=== PATIENT | female | born 1935 | race Caucasian/White ===

== ENCOUNTER 2017-04-27 14:56 | Observation (INO) | payer MEDICARE, BC ==
--- NOTE | 2017-04-27 16:32 | CT ---
CT OF THE BRAIN WITHOUT CONTRAST: Date: 04/27/17 COMPARISON: 04/30/15. HISTORY: Head injury after fall. TECHNIQUE: Multiple contiguous axial images were obtained in a CT of the brain without contrast. FINDINGS: The brain is normal in morphology and attenuation without focal lesions or confluent areas of infarct ion. There is no evidence of hydrocephalus, intracranial hemorrhage, or extra-axial fluid collection. The calvarium is unremarkable. There is a dressing placed superficially on the patient's left posteri or scalp. The visualized paranasal sinuses and mastoid air cells are well aerated. IMPRESSION: No evidence of acute intracranial abnormality. POS: [facility]
[2017-04-27] MEDS ORDERED: Lidocaine 1% w/Epinephrine 1:100K 20 ML VIAL ONE (17:15)
[2017-04-27 17:51] LABS: #Basophils 0.1 thou/uL (0.0-0.2); #Eosinphils 0.1 thou/uL (0.0-0.7); #Lymphocytes 1.4 thou/uL (1.20-3.40); #Monocytes 0.9 thou/uL (0.11-0.59); #Neutrophils 5.9 thou/uL (1.40-6.50); %Basophils 0.7 % (0.0-1.0); %Eosinophils 1.7 % (0.0-10.0); %Lymphocytes 16.5 % (21.0-51.0); %Monocytes 10.7 % (0.0-10.0); %Neutrophils 70.5 % (42.0-75.0); Hemoglobin 10.1 g/dL (12.0-16.0); Mean Corpuscular HGB CONC 34.7 g/dL (32.0-36.0); Mean Corpuscular Hemoglobin 35.9 pg (27.0-31.0); Platelet Count 229 thou/uL (130-400); RBC Distribution Width 12.4 % (11.5-14.5); Red Blood Cell (RBC) Count 2.82 mill/uL (4.20-5.40); White Blood Cell (WBC) Count 8.3 thou/uL (4.8-10.8)
[2017-04-27 17:58] LABS: INR-International Normal Ratio 1.9; PTT 31.3 SEC (22.9-36.1); Prothrombin Time 22.7 SEC (12.0-14.7)
[2017-04-27 18:14] LABS: ALT (SGPT) 16 U/L (8-55); AST (SGOT) 17 U/L (5-34); Albumin 3.8 g/dL (3.4-4.8); Alkaline Phosphatase 44 U/L (40-150); Anion Gap 12 mmol/L (10-20); BUN (Urea Nitrogen) 21 mg/dL (9.8-20.1); Bilirubin, Total 0.5 mg/dL (0.2-1.2); Calc. Creatinine Clearance 0 mL/min (70-130); Calcium 9.1 mg/dL (7.8-10.44); Carbon Dioxide 24 mmol/L (23-31); Chloride 95 mmol/L (98-107); Estimated GFR-MDRD 52; Globulin 2.4 g/dL (2.4-3.5); Glucose 146 mg/dL (83-110); Magnesium 1.9 mg/dL (1.6-2.6); Potassium 4.3 mmol/L (3.5-5.1); Protein, Total 6.2 g/dL (6.0-8.3); Sodium 127 mmol/L (136-145)
[2017-04-27 18:18] LABS: CKMB 1.5 ng/mL (0-6.6); Troponin I Less than 0.010 ng/mL (< 0.028)
--- NOTE | 2017-04-27 20:06 | RAD ---
CHEST ONE VIEW: History: Laceration to back of head. FINDINGS: Heart size is within normal limits. There are atherosclerotic changes of the aorta. The lungs are oh ar of any infiltrative process. The bones are demineralized. No rib fractures are appreciated. Mitral annulus calcifications are seen. IMPRESSION: No active intrathoracic disease. POS: [facility]
--- NOTE | 2017-04-27 20:07 | RAD ---
AP PELVIS: History: Fall with pelvic pain. Comparison: 11-29-13 FINDINGS: There is some slight deformity to the left superior and inferior pubic rami. I believe that these are related to older injuries. They were not seen on the previous study, but I still favor that these ar e old. SI joints are symmetric. There are some arthritic changes of both hips. IMPRESSION: Suggestion of some old injury to the left superior and inferior pubic rami region. No definite acute fracture. POS: [facility]
--- NOTE | 2017-04-27 20:09 | RAD ---
LUMBAR SPINE SERIES THREE VIEWS: History: Fall with back pain. FINDINGS: The bones appear demineralized. Vertebral body height is well maintained. Disc narrowing is seen at L 5-S1. There are degenerative facet changes present. No acute injury demonstrated. Staghorn calculus o f the left kidney is noted. IMPRESSION: No evidence of acute injury. POS: [facility]
--- NOTE | 2017-04-27 20:10 | RAD ---
LEFT ELBOW TWO VIEWS: History: Fall with elbow pain. Comparison: 05-02-15 FINDINGS: Post-operative changes of the elbow are now present. There is artificial joint extending across the u esthetics instructor and distal humerus related to an old fracture. There are no signs of acute injury. IMPRESSION: No acute fracture. POS: [facility]
--- NOTE | 2017-04-27 20:11 | RAD ---
RIGHT HAND THREE VIEWS: History: Fall with hand pain. FINDINGS: There are arthritic changes of the hand. Changes are most pronounced at the PIP joint of the little f jacky. The bones are demineralized. There are no signs of fracture or dislocation. IMPRESSION: No evidence of fracture. POS: [facility]
--- NOTE | 2017-04-27 20:11 | RAD ---
LEFT ANKLE TWO VIEWS: History: Fall with ankle pain. FINDINGS: Calcaneal spurs are present. There are no signs of fracture, dislocation, or joint effusion. IMPRESSION: No evidence of fracture. POS: [facility]
[2017-04-27] MEDS ORDERED: Adacel (T-DAP) 0.5 ML VIAL ONE (20:45)
[2017-04-27 21:51] LABS: #Eosinphils 0.1 thou/uL (0.0-0.7); #Lymphocytes 1.4 thou/uL (1.20-3.40); #Monocytes 0.7 thou/uL (0.11-0.59); #Neutrophils 10.5 thou/uL (1.40-6.50); %Basophils 0.3 % (0.0-1.0); %Eosinophils 0.6 % (0.0-10.0); %Lymphocytes 10.7 % (21.0-51.0); %Monocytes 5.6 % (0.0-10.0); %Neutrophils 82.8 % (42.0-75.0); Hemoglobin 8.2 g/dL (12.0-16.0); Mean Corpuscular HGB CONC 33.7 g/dL (32.0-36.0); Mean Corpuscular Hemoglobin 35.2 pg (27.0-31.0); Platelet Count 210 thou/uL (130-400); RBC Distribution Width 12.6 % (11.5-14.5); Red Blood Cell (RBC) Count 2.34 mill/uL (4.20-5.40); White Blood Cell (WBC) Count 12.7 thou/uL (4.8-10.8)
[2017-04-27 23:23] VITALS: BMI 27.4
[2017-04-27] MEDS ORDERED: Sodium Chloride 0.9% 1,000 ML IV SCH (23:33)
[2017-04-27] MEDS ORDERED: Dextrose 50% Abboject 50 ML SYRINGE SLOW IVP PRN (23:33)
[2017-04-27] MEDS ORDERED: Ondansetron ODT 4 MG TAB PO PRN (23:33)
[2017-04-27] MEDS ORDERED: Dextrose 5% in Water 1,000 ML IV PRN (23:33)
[2017-04-27] MEDS ORDERED: traMADol HCl 50 MG TAB PO PRN ×2 (23:33)
[2017-04-27] MEDS ORDERED: HumaLOG 300 UNITS/3 ML VIAL SC PRN (23:33)
[2017-04-27] MEDS ORDERED: Promethazine HCl 25 MG/ML VIAL IM PRN (23:33)
[2017-04-27] MEDS ORDERED: Ondansetron HCl/PF 4 MG/2 ML Vial IVP PRN (23:33)
[2017-04-28] MEDS ORDERED: Non-Formulary Item 1 EACH (Ezetimibe/Simvastatin [Vytorin] 1 TABLET) PO SCH (00:15)
[2017-04-28] MEDS: Acetaminophen 500 MG TAB PO SCH ×3 (00:38→11:38)
--- NOTE | 2017-04-28 00:45 | HP ---
DATE OF ADMISSION: 04/27/2017 ATTENDING PHYSICIAN: Naseem Perdomo M.D. CHIEF COMPLAINT: Evaluation status post fall. HISTORY OF PRESENT ILLNESS: An 81-year-old female who reports head injury, status post fall. The patient reported she tripped over something. Family has been reporting recent gait instability, the patient fell yesterday and injured her left elbow. The patient had no LOC. She is currently on Xarelto. She denies any chest pain, dizziness, shortness of breath prior to the fall. PAST MEDICAL HISTORY: Includes atrial fibrillation on Xarelto, hypertension, diabetes type 2, hyperlipidemia, colon cancer, liver cancer 30 years ago. PAST SURGICAL HISTORY: Includes colon resection and hysterectomy. PAST PSYCHIATRIC HISTORY: No psychiatric history. SOCIAL HISTORY: The patient lives alone. She denies any alcohol or drug use or smoking history. REVIEW OF SYSTEMS: All 10 systems reviewed otherwise stated in the HPI were negative. PHYSICAL EXAMINATION: VITAL SIGNS: Blood pressure 110/39, heart rate of 57, respiratory rate of 16, 0 /10 pain, 95% on room air. HEENT: She does have a hematoma to the posterior scalp that has been repaired where there is a laceration, normocephalic. Eyes: A 3 mm bilaterally, equal, round, and reactive. No JVD, no masses. Trachea is midline. NECK: No cervical spine tenderness. CHEST: She is clear bilaterally via auscultation. No chest wall tenderness. CARDIOVASCULAR: S1, S2 regular rate and rhythm. ABDOMEN: Soft, nontender, nondistended. BACK: Unremarkable. EXTREMITIES: Upper extremity showed ecchymosis and tenderness to the left elbow , right arm is void of injury. Lower extremity: Left lower leg has multiple areas of old and new bruises from the upper thigh to the knee. She has been ambulating falls. NEUROLOGIC: GCS is 15. SKIN: Warm and dry. LABORATORY DATA: WBC of 8.3, hemoglobin 10.1, hematocrit of 29.1, platelet count 229. Coag: PT 22.7, INR 1.9, PTT 31.3. Chemistries: Sodium 127, potassium 4.3, chloride 95, bicarb of 24, BUN 21, creatinine 1.03. Glucose 146. IMAGING: Brain CT, no intracranial hemorrhage. Chest x-ray, no acute abnormality, elbow x-ray, no acute fracture. Pelvic x-ray showed possible old injury to the left superior and inferior pubic rami fracture. Ankle x-ray, no evidence of fracture. Hand x-ray, no evidence of fracture. Lumbar spine x-ray , no evidence of acute injury. ASSESSMENT AND PLAN: An 81-year-old female, status post fall from standing, with head lac on blood thinners. 1. Status post fall and concussion. 2. Head laceration. 3. History of atrial fibrillation on thinners. Plan will be to place the patient on observation to stroke floor, q.2 hours neuro checks.Repeat CT Head in the AM. Resume home medications with the exception of Xarelto. Regular diet. Optimize pain management. PT, OT, possible rehabilitation discharge planning. The patient has been discussed with Dr. Perdomo and agrees with the above plan. DI
[2017-04-28 05:55] LABS: #Eosinphils 0.1 thou/uL (0.0-0.7); #Lymphocytes 1.5 thou/uL (1.20-3.40); #Monocytes 0.8 thou/uL (0.11-0.59); #Neutrophils 4.5 thou/uL (1.40-6.50); %Basophils 0.1 % (0.0-1.0); %Eosinophils 0.9 % (0.0-10.0); %Lymphocytes 22.2 % (21.0-51.0); %Monocytes 11.9 % (0.0-10.0); %Neutrophils 64.8 % (42.0-75.0); Hemoglobin 7.4 g/dL (12.0-16.0); Mean Corpuscular HGB CONC 34.3 g/dL (32.0-36.0); Mean Corpuscular Hemoglobin 35.9 pg (27.0-31.0); Mean Platelet Volume 7.1 fL (7.4-10.4); PTT 27.1 SEC (22.9-36.1); Platelet Count 175 thou/uL (130-400); RBC Distribution Width 12.8 % (11.5-14.5); Red Blood Cell (RBC) Count 2.05 mill/uL (4.20-5.40); White Blood Cell (WBC) Count 6.9 thou/uL (4.8-10.8)
[2017-04-28 05:57] LABS: INR-International Normal Ratio 1.4; Prothrombin Time 17.6 SEC (12.0-14.7)
[2017-04-28] MEDS ORDERED: Levothyroxine Sodium 88 MCG TAB PO SCH (06:00)
[2017-04-28 06:03] LABS: Anion Gap 10 mmol/L (10-20); BUN (Urea Nitrogen) 26 mg/dL (9.8-20.1); Calc. Creatinine Clearance 59 mL/min (70-130); Calcium 8.1 mg/dL (7.8-10.44); Carbon Dioxide 24 mmol/L (23-31); Chloride 101 mmol/L (98-107); Estimated GFR-MDRD 50; Glucose 136 mg/dL (83-110); Potassium 4.3 mmol/L (3.5-5.1); Sodium 131 mmol/L (136-145)
--- NOTE | 2017-04-28 07:37 | CT ---
PRELIMINARY REPORT/[facility]/EMERGENCY AFTER HOURS PROCEDURE: EXAM: CT Head Without Intravenous Contrast CLINICAL HISTORY: 81 years old, female; Injury or trauma; Fall; Initial encounter; Abrasion; Head, generalized; Patient HX: F/u fall TECHNIQUE: Axial computed tomography images of the head/brain without intravenous contrast. COMPARISON: CT Brain WO Con 2017-04-27 16:24 FINDINGS: Brain: Age appropriate atrophy and small vessel ischemic change. No mass effect, midline shift or ext ra axial fluid collections. Riley-white matter differentiation is normal. No hemorrhage. Ventricles: Unremarkable. No ventriculomegaly. Bones/joints: Unremarkable. No acute fracture. Soft tissues: There is left parietal scalp swelling with surgical akhil in place Vasculature: Carotid and vertebral artery atherosclerotic calcification. Sinuses: Mucosal thickening in the sphenoid sinuses. Mastoid air cells: Unremarkable as visualized. No mastoid effusion. Orbits: The patient has had bilateral lens replacement surgery. IMPRESSION: No acute intracranial injury. Thank you for allowing us to participate in the care of your patient. Dictated and Authenticated by: Naseem Santiago MD 04/28/2017 5:52 AM Central Time ([place] & [place]) FINAL REPORT CT BRAIN WITHOUT CONTRAST: I agree with the preliminary report given by Dr. Naseem Santiago of [facility]. POS: [facility]
[2017-04-28] MEDS ORDERED: metFORMIN 500 MG TAB PO SCH (08:00)
[2017-04-28] MEDS ORDERED: Famotidine 20 MG TAB PO SCH (09:00)
[2017-04-28] MEDS ORDERED: Metoprolol Tartrate 50 MG TAB PO SCH (09:00)
[2017-04-28] MEDS ORDERED: Alogliptin 25 MG TAB PO SCH (09:00)
[2017-04-28] MEDS ORDERED: Flecainide 50 MG TAB PO SCH (09:00)
[2017-04-28] MEDS ORDERED: Escitalopram Oxalate 20 mg Tablet PO SCH (09:00)
[2017-04-28 11:41] VITALS: TEMP 98.1
[2017-04-28 13:45] VITALS: BP 123/59
--- NOTE | 2017-04-28 23:49 | DIS ---
DATE OF ADMISSION: 04/27/2017. DATE OF DISCHARGE: 04/28/2017. CHIEF COMPLAINT: Evaluation status post fall. HISTORY OF PRESENT ILLNESS: The patient is an 81-year-old female with a history of atrial fibrillation, treated with Xarelto; hypertension; type 2 diabetes; hyperlipidemia; and a remote history of colon and liver cancer. She presented to the ED status post fall with concern for acute intracranial bleed given her Xarelto use. She has a history of recent gait instability and falls including 3-4 falls in the last year. In this most recent episode, she fell and injured her left elbow, but did not report any loss of consciousness and denied any chest pain, dizziness, shortness of breath. ER COURSE: She had a brain CT, which was negative for acute intracranial abnormality. She also had a chest x-ray, elbow x-ray, pelvis x-ray, ankle x-ray , hand x-ray, and lumbar spine x-ray; all of which were negative for acute injury. She also had a posterior head laceration, which was closed in the ER. She was admitted by the Trauma Service and sent to the stroke floor for observation. No further procedures were performed. DISCHARGE: the patient was discharged home with home health in stable condition. DISCHARGE MEDICATIONS: New medications: Acetaminophen 1000 mg p.o. every 6 hours, tramadol 50 mg p.o. every 6 hours as needed. CONTINUED MEDICATIONS: Metformin 500 mg b.i.d.; vitamin E 400 units daily; Tambocor 50 mg p.o. b.i.d.; Januvia 100 mg p.o. daily; metoprolol 50 mg p.o. daily; aspirin 81 mg p.o. daily; levothyroxine 88 mcg p.o. daily; Lexapro 20 mg p.o. daily; vitamin D3, 1000 units p.o. daily; niacin 1 tab p.o. at bedtime; vitamin B12 one tab p.o. daily; losartan/HCTZ 50/12.5 mg tabs, 1 tablet p.o. daily; Vytorin 1 tablet p.o. as directed; amoxicillin 1 tablet p.o. daily. ACTIVITY ORDERS: No restrictions. DIET: No restrictions. THERAPIES: Home health 3 times a week for 4 weeks. FOLLOWUP ORDERS: The patient was instructed to follow up with Dr. Terry in 7 days. DI
[2017-04-29] MEDS ORDERED: Simvastatin 40 MG TAB PO SCH (21:00)
[2017-04-29] MEDS ORDERED: Ezetimibe 10 MG TAB PO SCH (21:00)
== END 2017-04-28 13:30 | disposition home health service (06) ==
LOC: ERS 14:56 → 2SE 18:12
PROVIDERS: ADMIT Specialist; ATTEND Specialist
DX: S00.91XA Abrasion of unspecified part of head, initial encounter (principal); S59.901A Unspecified injury of right elbow, initial encounter; I48.91 Unspecified atrial fibrillation; I10 Essential (primary) hypertension; E11.9 Type 2 diabetes mellitus without complications; E78.5 Hyperlipidemia, unspecified; Z91.041 Radiographic dye allergy status; Z79.01 Long term (current) use of anticoagulants; Z85.038 Personal history of other malignant neoplasm of large intestine; Z85.05 Personal history of malignant neoplasm of liver; Z91.81 History of falling
CPT/HCPCS: 12001; 70450 ×2; 71045; 72100; 72170; 73070; 73130; 73600; 80048; 80053; 82553; 82962 ×2; 83735; 84484; 85025 ×3; 85610 ×2; 85730 ×2; 90471; 90715; 96361; 96374; 97116; 97139; 97530; 99285; G0378; G8978; G8979; G8987; G8988; 36415; 36416; G0390; J2001; J2270

== ENCOUNTER 2021-08-30 16:56 | Day surgery (SDC) | payer MEDICARE ==
[2021-08-30] MEDS ORDERED: diphenhydrAMINE 25 MG CAP PO SCH (18:00)
[2021-08-30] MEDS ORDERED: Acetaminophen 500 MG TAB PO SCH (18:00)
[2021-08-31 00:02] LABS: Hemoglobin 6.8 g/dL (12.0-16.0); Mean Corpuscular HGB CONC 33.7 g/dL (32.0-36.0); Mean Corpuscular Hemoglobin 36.9 pg (27.0-31.0); Mean Platelet Volume 7.9 fL (7.4-10.4); Platelet Count 211 thou/uL (130-400); RBC Distribution Width 18.9 % (11.5-14.5); Red Blood Cell (RBC) Count 1.85 mill/uL (4.20-5.40); White Blood Cell (WBC) Count 5.4 thou/uL (4.8-10.8)
[2021-08-31 00:06] VITALS: BP 107/61; TEMP 97.8
[2021-08-31 00:26] LABS: MDiff Complete? YES
[2021-08-31 00:27] LABS: Anisocytosis SLIGHT = 6-15 cells (100X) (0-5/hpf); Band 7 % (5-11); Eosinophils 5 % (0-10); Lymphocytes 49 % (21-51); Macrocytosis SLIGHT = 6-15 cells (100X) (0-5/hpf); Metamyelocyte 1 % (0-0); Monocytes 10 % (0-10); Neutrophil 28 % (42-75)
== END 2021-08-31 04:52 | disposition home or self-care (01) ==
LOC: ONC/OP 16:56 → MSONC 17:49 → ONC/OP 08-31 04:52
PROVIDERS: ATTEND Internal Medicine Hematology & Oncology
PROC: 30233N1 Transfusion of Nonautologous Red Blood Cells into Peripheral Vein, Percutaneous Approach (ICD-10-PCS; principal; 2021-08-30)
DX: D64.9 Anemia, unspecified (principal); D69.6 Thrombocytopenia, unspecified; Z91.041 Radiographic dye allergy status
CPT/HCPCS: 36415; 36430; 80053; 82248; 82668; 82728; 83010; 83540; 83550; 83615; 84100; 84165; 84550; 85025; 85046; 86850; 86900; 86901; P9016

== ENCOUNTER 2021-08-31 12:45 | Emergency (ER) | payer MEDICARE ==
[2021-08-31 14:09] LABS: Hemoglobin 8.2 g/dL (12.0-16.0); Mean Corpuscular Hemoglobin 36.9 pg (27.0-31.0); Mean Platelet Volume 8.2 fL (7.4-10.4); Platelet Count 263 thou/uL (130-400); RBC Distribution Width 19.4 % (11.5-14.5); Red Blood Cell (RBC) Count 2.22 mill/uL (4.20-5.40)
[2021-08-31 14:15] LABS: INR-International Normal Ratio 1.1; PTT 24.9 sec (22.9-36.1); Prothrombin Time 14.3 sec (12.0-14.7)
[2021-08-31 14:22] LABS: ALT (SGPT) 17 U/L (8-55); AST (SGOT) 20 U/L (5-34); Albumin 4.1 g/dL (3.4-4.8); Alkaline Phosphatase 48 U/L (40-110); Anion Gap 12 mmol/L (10-20); BUN (Urea Nitrogen) 20 mg/dL (9.8-20.1); Bilirubin, Total 0.8 mg/dL (0.2-1.2); Calc. Creatinine Clearance 0 mL/min (70-130); Calcium 9.5 mg/dL (7.8-10.44); Carbon Dioxide 28 mmol/L (23-31); Chloride 103 mmol/L (98-107); Glucose 110 mg/dL (83-110); Potassium 4.2 mmol/L (3.5-5.1); Protein, Total 7.1 g/dL (5.8-8.1); Sodium 139 mmol/L (136-145)
[2021-08-31 14:26] LABS: Anisocytosis SLIGHT = 6-15 cells (100X) (0-5/hpf); Band 2 % (5-11); Eosinophils 1 % (0-10); Lymphocytes 46 % (21-51); MDiff Complete? YES; Macrocytosis MODERATE=16-30 cells (100X) (0-5/hpf); Monocytes 15 % (0-10); Neutrophil 28 % (42-75); Ovalocytes SLIGHT = 2-5 cells (100X) (0-1/hpf); Platelet Morphology Comment Appears Adequate; Polychromasia SLIGHT = 2-3 cells (100X) (0-2/hpf); Reactive Lymphocytes 8 % (0-10); Stomatocytes SLIGHT = 2-5 cells (100X) (0-1/hpf)
== END 2021-08-31 14:50 | disposition home or self-care (01) ==
LOC: ERS 12:45
DX: D64.9 Anemia, unspecified (principal); E78.5 Hyperlipidemia, unspecified; E11.9 Type 2 diabetes mellitus without complications; I48.91 Unspecified atrial fibrillation; Z79.82 Long term (current) use of aspirin; Z79.84 Long term (current) use of oral hypoglycemic drugs; Z79.01 Long term (current) use of anticoagulants
CPT/HCPCS: 80053; 85025; 85610; 85730; 86850; 86900; 86901; 99284

== ENCOUNTER 2021-10-17 08:29 | Observation (INO) | payer OTHER, MEDICARE ==
[~2021-10-17 08:29] MED LIST: ISOVUE-370 76%-LOCM 1 ML ONE
[2021-10-17 09:01] LABS: #Eosinphils 0.2 thou/uL (0.0-0.7); #Lymphocytes 1.6 thou/uL (1.20-3.40); #Monocytes 0.6 thou/uL (0.11-0.59); #Neutrophils 2.3 thou/uL (1.40-6.50); %Basophils 0.5 % (0.0-1.0); %Eosinophils 3.7 % (0.0-10.0); %Lymphocytes 34.5 % (21.0-51.0); %Monocytes 12.9 % (0.0-10.0); %Neutrophils 48.4 % (42.0-75.0); Hemoglobin 10.5 g/dL (12.0-16.0); Mean Corpuscular HGB CONC 33.9 g/dL (32.0-36.0); Mean Corpuscular Hemoglobin 41.4 pg (27.0-31.0); Mean Platelet Volume 8.1 fL (7.4-10.4); Platelet Count 210 thou/uL (130-400); RBC Distribution Width 16.2 % (11.5-14.5); Red Blood Cell (RBC) Count 2.54 mill/uL (4.20-5.40); White Blood Cell (WBC) Count 4.7 thou/uL (4.8-10.8)
[2021-10-17 09:26] LABS: ALT (SGPT) 26 U/L (8-55); AST (SGOT) 26 U/L (5-34); Albumin 4.6 g/dL (3.4-4.8); Alkaline Phosphatase 52 U/L (40-110); Anion Gap 15 mmol/L (10-20); BUN (Urea Nitrogen) 24 mg/dL (9.8-20.1); Calc. Creatinine Clearance 0 mL/min (70-130); Calcium 10.1 mg/dL (7.8-10.44); Carbon Dioxide 28 mmol/L (23-31); Chloride 100 mmol/L (98-107); Estimated GFR 47; Globulin 3.3 g/dL (2.4-3.5); Glucose 221 mg/dL (83-110); Potassium 4.7 mmol/L (3.5-5.1); Protein, Total 7.9 g/dL (5.8-8.1); Sodium 138 mmol/L (136-145)
[2021-10-17] MEDS ORDERED: Ondansetron PF 4 MG/2 ML Vial IVP PRN (18:14)
[2021-10-17] MEDS ORDERED: Promethazine HCl 25 MG/ML VIAL IM PRN (18:14)
[2021-10-17] MEDS ORDERED: EZETIMIBE PO SCH (18:30)
[2021-10-17] MEDS ORDERED: SIMVASTATIN PO SCH (18:30)
[2021-10-17 20:10] VITALS: BMI 25.7
[2021-10-17] MEDS: Sodium Chloride 0.9% 1,000 ML IV SCH ×2 (20:23→23:58)
[2021-10-17] MEDS: Acetaminophen 500 MG TAB PO SCH ×2 (20:24→23:57)
[2021-10-17] MEDS: Metoprolol Tartrate 50 MG TAB PO SCH (20:24)
[2021-10-17] MEDS ORDERED: HumaLOG 300 UNITS/3 ML VIAL SC PRN (20:26)
[2021-10-17] MEDS ORDERED: Dextrose 5% in Water 1,000 ML IV PRN (20:26)
[2021-10-17] MEDS ORDERED: Dextrose 50% Abboject 50 ML SYRINGE SLOW IVP PRN (20:26)
[2021-10-17] MEDS ORDERED: Famotidine/PF 20 mg/2ml Vial SLOW IVP SCH (21:00)
[2021-10-18] MEDS ORDERED: diphenhydrAMINE 50 MG/ML VIAL IVP SCH (02:00)
[2021-10-18] MEDS ORDERED: Famotidine/PF 20 mg/2ml Vial SLOW IVP SCH (02:00)
[2021-10-18] MEDS: methylPREDNISolone Sod Succ 40 MG VIAL IVP SCH ×3 (02:01→10:12)
[2021-10-18] MEDS: Acetaminophen 500 MG TAB PO SCH ×2 (04:57→12:41)
[2021-10-18 05:28] LABS: #Eosinphils 0.1 thou/uL (0.0-0.7); #Monocytes 0.4 thou/uL (0.11-0.59); #Neutrophils 3.6 thou/uL (1.40-6.50); %Basophils 0.4 % (0.0-1.0); %Eosinophils 1.3 % (0.0-10.0); %Lymphocytes 19.7 % (21.0-51.0); %Monocytes 7.2 % (0.0-10.0); %Neutrophils 71.5 % (42.0-75.0); Mean Corpuscular HGB CONC 33.2 g/dL (32.0-36.0); Mean Corpuscular Hemoglobin 41.1 pg (27.0-31.0); Platelet Count 166 thou/uL (130-400); RBC Distribution Width 15.9 % (11.5-14.5); Red Blood Cell (RBC) Count 2.18 mill/uL (4.20-5.40)
[2021-10-18] MEDS ORDERED: Levothyroxine Sodium 88 MCG TAB PO SCH (06:00)
[2021-10-18 06:02] LABS: Anion Gap 15 mmol/L (10-20); BUN (Urea Nitrogen) 17 mg/dL (9.8-20.1); Calc. Creatinine Clearance 66 mL/min (70-130); Calcium 9.1 mg/dL (7.8-10.44); Carbon Dioxide 21 mmol/L (23-31); Chloride 104 mmol/L (98-107); Estimated GFR 69; Glucose 156 mg/dL (83-110); Sodium 136 mmol/L (136-145)
[2021-10-18] MEDS ORDERED: Escitalopram Oxalate 20 mg Tablet PO SCH (09:00)
[2021-10-18] MEDS ORDERED: Amlodipine 10 MG TAB PO SCH (09:00)
[2021-10-18] MEDS: Metoprolol Tartrate 50 MG TAB PO SCH (09:06)
[2021-10-18 12:05] VITALS: BP 146/60; TEMP 98.2
[2021-10-18] MEDS ORDERED: Ferrous Sulfate 325 MG TAB PO SCH (17:00)
[2021-10-18] MEDS ORDERED: Simvastatin 10 MG TAB PO SCH (21:00)
[2021-10-18] MEDS ORDERED: Ezetimibe 10 MG TAB PO SCH (21:00)
[2021-10-19] MEDS ORDERED: Ascorbic Acid 500 mg Chewable Tablet PO SCH (09:00)
== END 2021-10-18 13:33 | disposition home or self-care (01) ==
LOC: ERS 08:29 → NEURO 18:14
PROVIDERS: ADMIT Specialist; ATTEND Specialist
DX: S06.6X0A Traumatic subarachnoid hemorrhage without loss of consciousness, initial encounter (principal); G89.11 Acute pain due to trauma; I10 Essential (primary) hypertension; E11.9 Type 2 diabetes mellitus without complications; E78.5 Hyperlipidemia, unspecified; I48.91 Unspecified atrial fibrillation; D64.9 Anemia, unspecified; M16.11 Unilateral primary osteoarthritis, right hip; M17.11 Unilateral primary osteoarthritis, right knee; Z85.038 Personal history of other malignant neoplasm of large intestine; Z79.2 Long term (current) use of antibiotics; Z79.4 Long term (current) use of insulin; Z79.810 Long term (current) use of selective estrogen receptor modulators (SERMs); Z79.82 Long term (current) use of aspirin; Z79.890 Hormone replacement therapy; Z79.899 Other long term (current) drug therapy; Z91.041 Radiographic dye allergy status; Z95.0 Presence of cardiac pacemaker; Z20.822 Contact with and (suspected) exposure to COVID-19; W01.0XXA Fall on same level from slipping, tripping and stumbling without subsequent striking against object, initial encounter; Y92.238 Other place in hospital as the place of occurrence of the external cause
CPT/HCPCS: 36415; 36416; 70450; 70496; 70498; 80048; 80053; 85025; 93005; 96374; 96375; 96376; G0378; J1200; J2920; J7050; Q9966; S0028; U0003; U0005

== ENCOUNTER 2021-11-07 12:44 | Outpatient (CLI) | payer MEDICARE | END 2021-11-07 12:45 | disposition home or self-care (01) | LOC: CT 12:44 | PROVIDERS: ATTEND Internal Medicine | DX: M25.551 Pain in right hip (principal); S32.591D Other specified fracture of right pubis, subsequent encounter for fracture with routine healing ==

== ENCOUNTER 2022-05-23 09:33 | Inpatient (IN) | payer MEDICARE ==
[~2022-05-23 09:33] MED LIST changes: -ISOVUE-370 76%-LOCM 1 ML ONE; +Iopamidol 370 76% 100 ML VIAL ONE
[2022-05-23] MEDS ORDERED: methylPREDNISolone Sod Succ 40 MG VIAL ONE (09:45)
[2022-05-23] MEDS ORDERED: diphenhydrAMINE 50 MG/ML VIAL ONE ×2 (09:45→10:58)
[2022-05-23] MEDS ORDERED: Famotidine/PF 20 mg/2ml Vial ONE (09:45)
[2022-05-23 09:52] LABS: Hemoglobin 11.3 g/dL (12.0-16.0); Mean Corpuscular HGB CONC 33.8 g/dL (32.0-36.0); Mean Corpuscular Hemoglobin 40.2 pg (27.0-31.0); Mean Platelet Volume 8.5 fL (7.4-10.4); Platelet Count 177 10x3/uL (130-400); Red Blood Cell (RBC) Count 2.82 mill/uL (4.20-5.40); White Blood Cell (WBC) Count 5.2 10x3/uL (4.8-10.8)
[2022-05-23 10:04] LABS: INR-International Normal Ratio 1.1; PTT 24.2 sec (22.9-36.1)
[2022-05-23 10:05] LABS: Band 11 % (5-11); Eosinophils 3 % (0-10); Hypochromia SLIGHT = 6-15 cells (100X) (0-5/hpf); Lymphocytes 10 % (21-51); MDiff Complete? YES; Macrocytosis SLIGHT = 6-15 cells (100X) (0-5/hpf); Monocytes 13 % (0-10); Neutrophil 63 % (42-75); Platelet Morphology Comment Appears Adequate
[2022-05-23 10:09] LABS: ALT (SGPT) 27 U/L (8-55); AST (SGOT) 20 U/L (5-34); Albumin 4.2 g/dL (3.4-4.8); Alkaline Phosphatase 41 U/L (40-110); Anion Gap 15 mmol/L (10-20); BUN (Urea Nitrogen) 23 mg/dL (9.8-20.1); Bilirubin, Total 0.8 mg/dL (0.2-1.2); CK (CPK) 27 U/L (29-168); Calc. Creatinine Clearance 0 mL/min (70-130); Calcium 9.6 mg/dL (7.8-10.44); Carbon Dioxide 25 mmol/L (23-31); Chloride 103 mmol/L (98-107); Estimated GFR 59; Globulin 2.6 g/dL (2.4-3.5); Glucose 154 mg/dL (83-110); Potassium 4.5 mmol/L (3.5-5.1); Protein, Total 6.8 g/dL (5.8-8.1); Sodium 138 mmol/L (136-145)
[2022-05-23] MEDS ORDERED: fentaNYL PF 100 MCG/2 ML SYRINGE ONE (10:29)
[2022-05-23] MEDS ORDERED: Rocuronium Bromide 10 MG/ML (10ML VIAL) ONE (10:58)
[2022-05-23] MEDS ORDERED: Dexamethasone 20 MG/5 ML VIAL ONE (10:58)
[2022-05-23] MEDS ORDERED: Lidocaine 1% PF 5 ML VIAL ONE (10:58)
[2022-05-23] MEDS ORDERED: PROPOFOL 200 MG/20 ML VIAL ONE (10:58)
[2022-05-23] MEDS ORDERED: Esmolol 100 MG/10 ML VIAL ONE (10:58)
[2022-05-23] MEDS ORDERED: hydrALAZINE 20 MG/ML VIAL SLOW IVP PRN (10:59)
[2022-05-23] MEDS ORDERED: Acetaminophen 325 MG TAB PO PRN (10:59)
[2022-05-23] MEDS ORDERED: Labetalol HCl 100 MG/20 ML VIAL SLOW IVP PRN (10:59)
[2022-05-23] MEDS ORDERED: niCARdipine 25 MG in Sodium Chloride 0.9% 250 ML 250 ML IVPB PRN (10:59)
[2022-05-23] MEDS ORDERED: Heparin 10,000 UNITS/ 10 ML VIAL ONE (11:33)
[2022-05-23] MEDS ORDERED: Iopamidol-370 76% 500 ML 1 ML ONE (12:28)
[2022-05-23] MEDS: Sodium Chloride 0.9% 1,000 ML IV SCH (13:00)
[2022-05-23 13:03] LABS: Base Excess (BEa) -2.7 mEq/L (-2.0 to +3.0); CO2 Tension 43.8 mmHg (35.0-45.0); Calcium, Ionized (arterial) 1.11 mmol/L (1.12-1.30); Carboxyhemoglobin (COHb) 0.4 gm% (0.0-3.0); Hemoglobin (Hb) 11.6 g/dL (12.0-16.0); O2 Tension (PaO2), arterial 82.2 mmHg (> 60.0); Potassium - ABG Lab 4.42 mmol/L (3.70-5.30); pH, Arterial 7.34 (7.35-7.45)
[2022-05-23 13:04] LABS: Puncture Site LRA
[2022-05-23 13:32] LABS: SARS-CoV-2 NAA Rapid Test Not Detected (NotDetected)
[2022-05-23] MEDS ORDERED: HumaLOG 300 UNITS/3 ML VIAL SC PRN (14:03)
[2022-05-23] MEDS ORDERED: Dextrose 5% in Water 1,000 ML IV PRN (14:03)
[2022-05-23] MEDS ORDERED: Dextrose 50% Abboject 50 ML SYRINGE SLOW IVP PRN (14:03)
[2022-05-23] MEDS: HumaLOG 300 UNITS/3 ML VIAL SC PRN (18:06)
[2022-05-23] MEDS: Atorvastatin Calcium 40 MG TAB PO SCH (22:48)
[2022-05-23] MEDS: Metoprolol Tartrate 25 MG TAB PO SCH (22:48)
[2022-05-24] MEDS: Sodium Chloride 0.9% 1,000 ML IV SCH ×3 (02:00→22:09)
[2022-05-24 04:48] LABS: Cardiac Risk 2.2 (Less than 4.5); Cholesterol 110 mg/dl (< 200 Desired); HDL Cholesterol 51 mg/dL (>60 Neg Risk); LDL Cholesterol, Calculated 45 mg/dL; Magnesium 1.8 mg/dL (1.6-2.6); Triglycerides 71 mg/dL (Less than 150)
[2022-05-24] MEDS: Levothyroxine Sodium 88 MCG TAB PO SCH (05:27)
[2022-05-24] MEDS: HumaLOG 300 UNITS/3 ML VIAL SC PRN ×3 (06:04→22:28)
[2022-05-24] MEDS ORDERED: Aspirin 300 MG Suppository PR SCH (09:00)
[2022-05-24] MEDS ORDERED: Aspirin 325 mg Enteric Coated Tablet PO SCH (09:00)
[2022-05-24] MEDS ORDERED: ALBUMIN 5% 25 GM/250 ML BAG IVPB SCH (09:45)
[2022-05-24] MEDS ORDERED: Albumin 5% 250 ML ONE ×2 (09:46)
[2022-05-24] MEDS ORDERED: NOREPINEPHRINE 8 MG/250 ML-D5W 250 ML ONE (09:46)
[2022-05-24] MEDS ORDERED: Sodium Chloride 3% 250 ML IVPB SCH (10:45)
[2022-05-24] MEDS ORDERED: NOREPINEPHRINE 8 MG/250 ML-D5W 250 ML IVPB SCH (12:45)
[2022-05-24] MEDS: Ezetimibe 10 MG TAB PO SCH (12:55)
[2022-05-24] MEDS: Alogliptin 25 MG TAB PO SCH (12:55)
[2022-05-24] MEDS: Metoprolol Tartrate 25 MG TAB PO SCH ×2 (12:55→20:41)
[2022-05-24] MEDS ORDERED: Sodium Chloride 3% 500 ML IVPB SCH (13:45)
[2022-05-24] MEDS ORDERED: SODIUM CHLORIDE IV SCH (13:45)
[2022-05-24] MEDS ORDERED: ADMIXTURE FEE IV SCH (13:45)
[2022-05-24 14:08] LABS: Sodium 146 mmol/L (136-145)
[2022-05-24] MEDS: Pantoprazole 40 MG VIAL IVP SCH (14:12)
[2022-05-24 14:53] LABS: Actual Bicarbonate (HCO3a) 22.3 mEq/L (22-28); Base Excess (BEa) -1.5 mEq/L (-2.0 to +3.0); CO2 Tension 33.7 mmHg (35.0-45.0); Calcium, Ionized (arterial) 1.12 mmol/L (1.12-1.30); Carboxyhemoglobin (COHb) 0.1 gm% (0.0-3.0); Hemoglobin (Hb) 9.4 g/dL (12.0-16.0); O2 Tension (PaO2), arterial 151.3 mmHg (> 60.0); Potassium - ABG Lab 3.56 mmol/L (3.70-5.30); pH, Arterial 7.44 (7.35-7.45)
[2022-05-24 14:54] LABS: ALV-art Gradient 91.775 mmHg (0-20); Puncture Site Arterial Line
[2022-05-24 15:44] VITALS: BMI 34.6
[2022-05-24] MEDS: levETIRAcetam 500 MG/5 ML VIAL SLOW IVP SCH (16:12)
[2022-05-24 17:53] LABS: Sodium 154 mmol/L (136-145)
[2022-05-24] MEDS: Atorvastatin Calcium 40 MG TAB PO SCH (20:36)
[2022-05-24 21:27] LABS: Sodium 159 mmol/L (136-145)
[2022-05-25] MEDS: Sodium Chloride 0.9% 1,000 ML IV SCH (00:04)
[2022-05-25] MEDS: levETIRAcetam 500 MG/5 ML VIAL SLOW IVP SCH ×2 (02:40→15:24)
[2022-05-25 04:26] LABS: #Lymphocytes 1.1 thou/uL (1.20-3.40); #Monocytes 1.7 thou/uL (0.11-0.59); #Neutrophils 11.2 thou/uL (1.40-6.50); %Basophils 0.2 % (0.0-1.0); %Eosinophils 0.1 % (0.0-10.0); %Lymphocytes 8.1 % (21.0-51.0); %Monocytes 11.9 % (0.0-10.0); %Neutrophils 79.7 % (42.0-75.0); Hemoglobin 9.5 g/dL (12.0-16.0); Mean Corpuscular HGB CONC 32.1 g/dL (32.0-36.0); Mean Corpuscular Hemoglobin 38.7 pg (27.0-31.0); Mean Platelet Volume 8.8 fL (7.4-10.4); Platelet Count 152 10x3/uL (130-400); RBC Distribution Width 14.4 % (11.5-14.5); Red Blood Cell (RBC) Count 2.45 mill/uL (4.20-5.40)
[2022-05-25] MEDS: HumaLOG 300 UNITS/3 ML VIAL SC PRN ×4 (05:19→21:45)
[2022-05-25] MEDS: Levothyroxine Sodium 88 MCG TAB PO SCH (06:00)
[2022-05-25 06:24] LABS: Anion Gap 11 mmol/L (10-20); BUN (Urea Nitrogen) 17 mg/dL (9.8-20.1); Calc. Creatinine Clearance 65 mL/min (70-130); Calcium 9.9 mg/dL (7.8-10.44); Carbon Dioxide 24 mmol/L (23-31); Chloride 133 mmol/L (98-107); Estimated GFR 63; Glucose 211 mg/dL (83-110); Potassium 2.7 mmol/L (3.5-5.1); Sodium 165 mmol/L (136-145)
[2022-05-25] MEDS: Alogliptin 25 MG TAB PO SCH (10:16)
[2022-05-25] MEDS: Pantoprazole 40 MG VIAL IVP SCH (10:16)
[2022-05-25] MEDS: Ezetimibe 10 MG TAB PO SCH (10:16)
[2022-05-25] MEDS: Metoprolol Tartrate 25 MG TAB PO SCH ×2 (11:24→21:06)
[2022-05-25] MEDS ORDERED: Potassium Chloride 40 MEQ in Premix Bag 1 BAG IVPB SCH (11:30)
[2022-05-25 13:16] LABS: Sodium 168 mmol/L (136-145)
[2022-05-25] MEDS ORDERED: Metoclopramide HCl 10 MG/2 ML VIAL IVP PRN (13:26)
[2022-05-25 19:09] LABS: Sodium 168 mmol/L (136-145)
[2022-05-25] MEDS: Atorvastatin Calcium 40 MG TAB PO SCH (21:06)
[2022-05-26] MEDS: levETIRAcetam 500 MG/5 ML VIAL SLOW IVP SCH (02:15)
[2022-05-26] MEDS: HumaLOG 300 UNITS/3 ML VIAL SC PRN ×2 (04:17→09:18)
[2022-05-26 04:47] LABS: Hemoglobin 10.1 g/dL (12.0-16.0); Mean Corpuscular HGB CONC 33.3 g/dL (32.0-36.0); Mean Corpuscular Hemoglobin 40.7 pg (27.0-31.0); Mean Platelet Volume 9.2 fL (7.4-10.4); Platelet Count 156 10x3/uL (130-400); RBC Distribution Width 14.4 % (11.5-14.5); Red Blood Cell (RBC) Count 2.48 mill/uL (4.20-5.40); White Blood Cell (WBC) Count 17.8 10x3/uL (4.8-10.8)
[2022-05-26 05:10] LABS: Anion Gap 13 mmol/L (10-20); BUN (Urea Nitrogen) 19 mg/dL (9.8-20.1); Calc. Creatinine Clearance 48 mL/min (70-130); Calcium 10.5 mg/dL (7.8-10.44); Carbon Dioxide 24 mmol/L (23-31); Chloride 139 mmol/L (98-107); Estimated GFR 45; Glucose 372 mg/dL (83-110); Potassium 3.4 mmol/L (3.5-5.1); Sodium 173 mmol/L (136-145)
[2022-05-26 05:27] LABS: Band 6 % (5-11); Lymphocytes 6 % (21-51); MDiff Complete? YES; Monocytes 1 % (0-10); Myelocyte 1 % (0-0); Neutrophil 86 % (42-75); Ovalocytes SLIGHT = 2-5 cells (100X) (0-1/hpf); Platelet Morphology Comment Appears Adequate; Polychromasia SLIGHT = 2-3 cells (100X) (0-2/hpf)
[2022-05-26] MEDS: Levothyroxine Sodium 88 MCG TAB PO SCH (05:44)
[2022-05-26] MEDS: Metoprolol Tartrate 25 MG TAB PO SCH (08:05)
[2022-05-26] MEDS: Ezetimibe 10 MG TAB PO SCH (08:05)
[2022-05-26] MEDS: Alogliptin 25 MG TAB PO SCH (08:05)
[2022-05-26] MEDS: Pantoprazole 40 MG VIAL IVP SCH (08:05)
[2022-05-26 10:51] VITALS: BP 122/52
[2022-05-26 10:55] VITALS: TEMP 98.6
== END 2022-05-26 12:30 | disposition expired | DRG 23 ==
LOC: ERS 09:33 → CCU 10:48 → CCL 10:49 → CCU 12:17
PROVIDERS: ADMIT Neurological Surgery; ATTEND Internal Medicine
PROC: 03CG3Z7 Extirpation of Matter from Intracranial Artery using Stent Retriever, Percutaneous Approach (ICD-10-PCS; principal; 2022-05-23)
PROC: B31R1ZZ Fluoroscopy of Intracranial Arteries using Low Osmolar Contrast (ICD-10-PCS; 2022-05-23)
PROC: 04HY32Z Insertion of Monitoring Device into Lower Artery, Percutaneous Approach (ICD-10-PCS; 2022-05-24)
PROC: 06HY33Z Insertion of Infusion Device into Lower Vein, Percutaneous Approach (ICD-10-PCS; 2022-05-24)
PROC: 5A1945Z Respiratory Ventilation, 24-96 Consecutive Hours (ICD-10-PCS; 2022-05-24)
PROC: 0BH17EZ Insertion of Endotracheal Airway into Trachea, Via Natural or Artificial Opening (ICD-10-PCS; 2022-05-24)
PROC: 3E033XZ Introduction of Vasopressor into Peripheral Vein, Percutaneous Approach (ICD-10-PCS; 2022-05-24)
PROC: 30233J1 Transfusion of Nonautologous Serum Albumin into Peripheral Vein, Percutaneous Approach (ICD-10-PCS; 2022-05-24)
PROC: 4A10X4Z Monitoring of Central Nervous Electrical Activity, External Approach (ICD-10-PCS; 2022-05-26)
DX: I63.311 Cerebral infarction due to thrombosis of right middle cerebral artery (principal); I61.9 Nontraumatic intracerebral hemorrhage, unspecified; J96.01 Acute respiratory failure with hypoxia; G81.94 Hemiplegia, unspecified affecting left nondominant side; N17.9 Acute kidney failure, unspecified; E87.20 Acidosis, unspecified; E87.0 Hyperosmolality and hypernatremia; Z51.5 Encounter for palliative care; I10 Essential (primary) hypertension; E78.5 Hyperlipidemia, unspecified; R47.81 Slurred speech; I48.0 Paroxysmal atrial fibrillation; E11.69 Type 2 diabetes mellitus with other specified complication; D53.9 Nutritional anemia, unspecified; I34.0 Nonrheumatic mitral (valve) insufficiency; Z20.822 Contact with and (suspected) exposure to COVID-19; Z88.8 Allergy status to other drugs, medicaments and biological substances; Z95.0 Presence of cardiac pacemaker; Z79.82 Long term (current) use of aspirin; Z79.899 Other long term (current) drug therapy; Z90.710 Acquired absence of both cervix and uterus; Z90.49 Acquired absence of other specified parts of digestive tract; Z98.890 Other specified postprocedural states
CPT/HCPCS: 36415; 36416; 36600; 37184; 51701; 61645; 70450; 70496; 70498; 71045; 78610; 80048; 80053; 80061; 82550; 82607; 82805; 83735; 84295; 84484; 85025; 85610; 85730; 93005; 93306; 94002; 94003; 94760; A9521; C1769; C1887; C1894; C9113; J1100; J1200; J1644; J1815; J1953; J2704; J2765; J2920; J3480; J7050; J7131; P9045; Q9967; S0028; U0002